=== PATIENT | female | born 1960 | race Two or more races ===

== ENCOUNTER 2025-06-18 10:44 | Emergency (ER) | payer OTHER ==
[~2025-06-18] VITALS: Ht 162.6 cm; Wt 102.1 kg
[2025-06-18 11:06] VITALS: BP 139/70; O2SAT 99
[2025-06-18] MEDS ORDERED: ESTRADIOL PO (11:07)
[2025-06-18] MEDS ORDERED: FAMOTIDINE/PF 20 MG/2 ML VIAL ONE (11:24)
[2025-06-18] MEDS ORDERED: FAMOTIDINE/PF 20 MG/2 ML VIAL IV PUSH STA (11:24)
[2025-06-18 12:00] LABS: BASO % 0.3 % (0.1-1.2); EOS # 0.30 (0.04-0.54); EOS % 3.0 % (0.7-7.0); LYMPH # 1.15 (1.18-3.74); LYMPH % 11.6 % (19.3-53.1); MEAN PLATELET VOLUME 9.70 fl (9.4-12.4); MONO # 1.10 (0.24-0.82); MONO % 11.1 % (4.7-12.5); NEUT # 7.30 (1.56-6.13); NEUT % 73.8 % (34.0-71.1); RED CELL DISTRIBUTION WIDTH 13.0 % (11.6-14.4)
[2025-06-18 12:39] LABS: URINE APPEARANCE Clear; URINE BILIRRUBIN Negative (NEGATIVE); URINE BLOOD Negative; URINE COLOR Dark Yellow; URINE GLUCOSE Negative (NEGATIVE); URINE LEUKOCYTE Negative; URINE NITRATE Negative; URINE PROTEIN Negative (NEGATIVE); URINE UROBILINOGEN 0.2 E.U./dl
[2025-06-18 12:40] LABS: ALT/SGPT 25.0 U/L (12-78); AST/SGOT 12.0 U/L (15-37); BILIRUBIN TOTAL 0.55 mg/dL (0.3-1.2); BUN CREA RATIO 22.0 (7.0-25.0); CREATININE SERUM 0.55 mg/dL (0.55-1.02); GFR 110.59; GLOBULINA 3.7 G/DL (2.4-3.5); GLUCOSE FASTING 91.0 mg/dL (65-100); OSMOLALITY SERUM 281.0 MOSM/KG (275-295)
[2025-06-18 12:40] LABS: URINE BACTERIA 5032.4 uL (0.0-1933); URINE EPITHELIAL CELLS 21.0 uL (0.0-38.8); URINE RBC 24.1 uL (0.0-20.8); URINE WBC 31.6 uL (0.0-23.2)
[2025-06-18 13:01] LABS: COVID-19 AG NEGATIVE (NEGATIVE)
[2025-06-18 13:09] LABS: URINE CAST 0.00 uL (0.0-1.40); URINE KETONE 40 (NEGATIVE)
[2025-06-18] MEDS ORDERED: CEFTRIAXONE SODIUM 1,000 MG VIAL IM STA (13:18)
[2025-06-18] MEDS ORDERED: CEFTRIAXONE SODIUM 1,000 MG VIAL ONE (13:32)
== END 2025-06-18 13:58 | disposition home or self-care (01) ==
LOC: ER 10:44
PROVIDERS: General Practice
DX: N39.0 Urinary tract infection, site not specified (principal); Z20.822 Contact with and (suspected) exposure to COVID-19